=== PATIENT | male | born 1970 | race Caucasian/White ===

== ENCOUNTER 2025-06-19 17:24 | Inpatient (IN) | payer OTHER ==
[~2025-06-19] VITALS: Ht 182.9 cm; Wt 95.7 kg
[2025-06-19 23:18] VITALS: BP_SYST 120; BP_DIAS 64; BP_DIAS 68; PULSE 82; RESP 18; TEMP 97.5; O2SAT 94
[2025-06-20] VITALS (8 sets, daily range): BP systolic 104–130; BP diastolic 66–79; PULSE 56–86; RESP 16–18; TEMP 97.4–97.8; O2SAT 92–98
[2025-06-20] MEDS ORDERED: TAMS0.4C39 PO (00:18)
[2025-06-20] MEDS ORDERED: ROSU40TA47 PO (00:18)
[2025-06-20] MEDS ORDERED: ONDANSETRON HCL 4 MG/2 ML VIAL IV PRN (00:45)
[2025-06-20] MEDS ORDERED: MORPHINE SULFATE INJ 2 MG/ml SYRG IV PRN (00:45)
--- NOTE | 2025-06-20 01:06 | DVHHPRES ---
History of Present Illness Resident Creating Document: MAXIMILIANO WEEMS RESIDENT History of Present Illness Ryan Banerjee, is a 55 yo male with a past medical history of hyperlipidemia, BPH, hypogonadism and relevant surgical history of appendectomy, cholecystectomy and left inguinal repair. The patient is a transfer from the [facility] ([facility]) where he consulted with history of 1 day of sudden start of abdominal pain 10/10, cramp-like, localized in the left lower quadrant, associated with nausea, vomit #1, cold sweats and dizziness. The patient reported no passing gases and not having a bowel movement in the last 2 days. At the [facility] the labs showed WBC 15.4 x10e3, absolute neutrophils 13.91, CT scan showed: findings concerning for small bowel obstruction with transition point in the right mid abdomen, there is free fluid om the peritoneal cavity and diffusely dilatated loops of small bowel. No free intraperitoneal air. Appendix no visualized, with surgical clips adjacent to the cecum. Significant prostatomegaly. The patient was transported to [facility] for further evaluation and management. The patient denies history of prior abdominal obstructions, fever, nausea, vomit, diarrhea or other symptoms. 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 Father: Lung cancer), Hypertension Smoke: Quit (Cigarretes for 10 years, quit 30 years ago. ) ALCOHOL: occassional Drugs: None Lives: with Family Review of Systems Constitutional: No: Fever, Chills, Sweats, Weakness, Malaise, Other Eyes: No: Pain, Vision change, Conjunctivae inflammation, Eyelid inflammation, Other, Redness ENT: No: Ear pain, Ear discharge, Nose pain, Nose discharge, Nose congestion, Mouth pain, Mouth swelling, Throat pain, Throat swelling, Other Respiratory: No: Cough, Dry, Shortness of breath, SOB with excertion, Wheezing, Hemoptysis, Pleuritic Pain, Sputum, Wheezing, Other Cardiovascular: No: Chest Pain, Palpitations, Orthopnea, Paroxysmal Noc. Dyspnea, Edema, Lt Headedness, Other Gastrointestinal: Nausea, Vomiting, Abdominal Pain, Other (Dizizness) Genitourinary: No Dysuria, No Frequency, No Incontinence, No Hematuria, No Retention, No Other Musculoskeletal: No: other, neck pain, shoulder pain, arm pain, back pain, hand pain, leg pain, foot pain Skin: No: Rash, Lesions, Jaundice, Bruising, Other Neurological: No: Weakness, Numbness, Incoordination, Change in speech, Confusion, Seizures, Other Allergies: Coded Allergies: NO KNOWN ALLERGIES (Unverified , 06/19/25) Medications Current Medications Medications Dose Ordered Sig/Steve Route Start Time Stop Time Status Last Admin Dose Admin Morphine Sulfate 2 mg Q4HPRN PRN IV 06/20/25 00:45 UNV Ceftriaxone Sodium 50 ml @ 100 mls/hr DAILY@09 IV 06/20/25 09:00 UNV Metronidazole 100 ml @ 100 mls/hr Q8HR IV 06/20/25 06:00 UNV Pantoprazole Sodium 40 mg DAILY IV 06/20/25 10:00 UNV Ondansetron HCl 4 mg Q4HPRN PRN IV 06/20/25 00:45 UNV Exam Vital Signs Vital Signs Date Time Temp Pulse Resp B/P (MAP) Pulse Ox O2 Delivery O2 Flow Rate FiO2 06/19/25 23:18 97.5 82 18 120/68 (85) 94 97.5 General Appearance: Alert, Oriented X3, Cooperative, mild distress HEENT: Atraumatic, PERRLA, Mucous membr. moist/pink Respiratory: Clear to auscultation, Normal air movement Cardiovascular: Regular rate, Normal S1, Normal S2, No murmurs Abdominal: No masses, Other (Flat, no abdominal distention, hypoactive bowel sounds, tender to deep palpation over epigastic area and Left lower quadrant. No rebound, no rigidity. ) Extremities: No clubbing, No cyanosis, No edema, Normal pulses, No tenderness/swelling Skin: No rashes, No breakdown, No significant lesion Neuro: Normal gait, Normal speech, Strength at 5/5 X4 ext, Normal tone, Sensation intact, Cranial nerves 3-12 NL Psych/Mental Status: Mental status NL, Mood NL SEPSIS Sepsis Screen Recent Procedure: No On Antibiotic Therapy: Yes Respiratory Rate >20: No Heart Rate >90: No Temp<36 C (96.8 F) or >38.3 C: No SBP <90 or MAP <65 mmHG: No New Acute Mental Status Change: No Is the patient on CPAP, BIPAP,: No IV fluid challenge completed?: No Physician Orders * Dietary Consult (06/20/25 00:16) Admit (06/20/25 00:39) Code Status (06/20/25 00:39) Review Orders With Adm.Md (06/20/25 00:39) Bedrest With Bathroom Privileg (06/20/25 00:39) Notify Md Of Changes From Base (06/20/25 00:39) Advance Directive (06/20/25 00:39) Basic Metabolic Panel (06/20/25 00:39) Urinalysis (06/20/25 00:39) Complete Blood Count (06/20/25 00:39) Patient Condition (06/20/25 00:39) Allergies (06/20/25 00:39) Drug Screen (06/20/25 00:39) Morphine Sulfate Injection (06/20/25 00:45) Ceftriaxone 1gm/50ml D5w (Rocephin) (06/20/25 09:00) Metronidazole 500mg/100ml (Flagyl 500mg/ (06/20/25 06:00) Pantoprazole (Protonix) (06/20/25 10:00) NS (06/20/25 00:45) Ondansetron Hcl (Zofran) (06/20/25 00:45) * Surgical Consult (06/20/25 ) Vital Signs Date Time Temp Pulse Resp B/P (MAP) Pulse Ox O2 Delivery O2 Flow Rate FiO2 06/19/25 23:18 97.5 82 18 120/68 (85) 94 97.5 Assessment/Plan Assessment/Plan #Acute abdominal pain due to small bowel obstruction. #Leukocytosis NPO Nasogastric tube. Surgical consult IV fluids Morphine 2 mg IV Zofran 4mg IV PRN Ceftriaxone IV Flagyl IV Abdominal CT scan: Findings concerning for small bowel obstruction with transition point the right middle abdomen. #Hyperlipidemia Atorvastatin 40 mg (on hold for NPO) #Hypogonadism Testosterone injection (Home medication) #Benign prostatic hyperplasia Tamsulosin 0.4 mg (on hold for NPO) Diet: NPO until further notice DVT prophylaxis- Patient deambulates PUD prophylaxis Protonic Goals of care discussed with the patient > 35 min. Discussed plan of care with Dr. Schumacher Code status: Full code PCP: Julio Riggs ([facility]) Plan discussed with: Patient, the patient agrees with the plan. Plan discussed with: Patient My Orders Orders - MAXIMILIANO WEEMS RESIDENT Procedure Category Date Status Time Admit ADMIT 06/20/25 Transmitted 00:39 Code Status CODE 06/20/25 Transmitted 00:39 Review Orders With [facility] 06/20/25 Transmitted Adm. 00:39 Bedrest With Bathroom [facility] 06/20/25 Transmitted Privileg 00:39 Notify Md Of Changes [facility] 06/20/25 Transmitted From Base 00:39 Advance Directive [facility] 06/20/25 Transmitted 00:39 Basic Metabolic Panel LAB 06/20/25 Transmitted 00:39 Urinalysis LAB 06/20/25 Transmitted 00:39 Complete Blood Count LAB 06/20/25 Transmitted 00:39 Patient Condition ORDERS 06/20/25 Transmitted 00:39 Allergies [facility] 06/20/25 Transmitted 00:39 Drug Screen LAB 06/20/25 Transmitted 00:39 Morphine Sulfate PHA 06/20/25 Logged Injection 00:45 Ceftriaxone 1gm/50ml PHA 06/20/25 Logged D5w (Rocephin) 09:00 Metronidazole PHA 06/20/25 Logged 500mg/100ml (Flagyl 06:00 Pantoprazole PHA 06/20/25 Transmitted (Protonix) 10:00 NS PHA 06/20/25 Transmitted 00:45 Ondansetron Hcl PHA 06/20/25 Transmitted (Zofran) 00:45 * Surgical Consult CONS 06/20/25 Transmitted Common Visit Codes: [id number] INP/OBS CARE (HIGH) Secondary Visit Codes: [id number] CARE PLAN 30 MINUTES MAXIMILIANO WEEMS RESIDENT Jun 20, 2025 01:06
[2025-06-20] MEDS: SODIUM CHLORIDE 0.9% 1,000 ML IV ONE (01:48)
[2025-06-20 05:23] LABS: Anion Gap 9 (5-15); Carbon Dioxide 26 mmol/L (20-31); Potassium 4.0 mmol/L (3.5-5.1); Sodium 143 mmol/L (136-145)
[2025-06-20 05:24] LABS: Calcium 8.8 mg/dL (8.7-10.4)
[2025-06-20 05:29] LABS: BUN/Creatinine Ratio 8.9 (10.0-20.0); Blood Urea Nitrogen 11 mg/dL (9-23); Glucose 81 mg/dL (74-106)
[2025-06-20 05:30] LABS: Lipase 45 U/L (12-53)
[2025-06-20 05:34] LABS: Chloride 108 mmol/L (98-107)
[2025-06-20 05:44] LABS: Hematocrit 52.1 % (41.0-53.0); Hemoglobin 17.9 g/dL (13.5-17.5); Mean Corpuscular Hemoglobin 28.8 pg (28.0-32.0); Mean Corpuscular Volume 83.9 fL (80.0-100.0); Nucleated Red Blood Cells % 0.3 %
[2025-06-20 06:03] LABS: Urine Protein, UAD TRACE (Negative)
[2025-06-20 06:22] LABS: Opiate Scree,Urine Neg (NEGATIVE)
[2025-06-20 06:37] LABS: Amphetamine Screen, Urine Neg (NEGATIVE); Barbiturate Scree,Urine Neg (NEGATIVE); Benzodiazephine Screen, Urine Neg (NEGATIVE); Cannabinoid Screen, Urine Neg (NEGATIVE); Cocaine Screen, Urine Neg (NEGATIVE); Phencyclidine Screen, Urine Neg (NEGATIVE)
[2025-06-20] MEDS: cefTRIAXone 1GM/50ML D5W 50 ML IV SCH (09:19)
[2025-06-20] MEDS: PANTOPRAZOLE 40 MG/10 ML VIAL INJ IV SCH (10:00)
--- NOTE | 2025-06-20 15:01 | DVHINCON2 ---
Date of service: Jun 20, 2025 Family History: Diabetes mellitus Grandpa FH: breast cancer G8 MOTHER, , Cause: Endometrial cancer FH: colon cancer Grandma FH: lung cancer Grandma FH: pancreatic cancer G8 FATHER, , Cause: Pancreas cancer FHx: cancer G8 MOTHER, , Cause: Endometrial cancer Hypertension Grandpa Allergies: Coded Allergies: NO KNOWN ALLERGIES (Unverified , 06/19/25) Home Meds Reported Medications Rosuvastatin Calcium (Rosuvastatin Calcium) 40 Mg Tab, 40 MG PO DAILY, TAB 06/20/25 Tamsulosin Hcl (Tamsulosin Hcl) 0.4 Mg Cap, 1 CAP PO BID, #30 CAP 5 Refills 06/20/25 Current Medications Current Medications Medications (Trade) Dose Ordered Sig/Steve Route PRN Reason Start Time Stop Time Status Last Admin Morphine Sulfate 2 mg Q4HPRN PRN IV SEVERE PAIN (7-10 PAIN SCALE) 06/20/25 00:45 Ceftriaxone Sodium 50 ml @ 100 mls/hr DAILY@09 IV 06/20/25 09:00 06/20/25 09:19 Metronidazole 100 ml @ 100 mls/hr Q8HR IV 06/20/25 06:00 06/20/25 13:42 Pantoprazole Sodium (Protonix) 40 mg DAILY IV 06/20/25 10:00 06/20/25 10:00 Ondansetron HCl (Zofran) 4 mg Q4HPRN PRN IV NAUSEA / VOMITING 06/20/25 00:45 Vital Signs Vital Signs Date Time Temp Pulse Resp B/P (MAP) Pulse Ox O2 Delivery O2 Flow Rate FiO2 06/20/25 13:00 97.7 86 17 105/66 (79) 98 97.7 06/20/25 08:30 Room Air* 0 21 Labs/Diagnostic Data Labs Test 06/20/25 05:00 06/20/25 04:43 Range/Units Urine Color Yellow Yellow Urine Clarity Clear Clear Urine pH 6.5 5.0-9.0 Urine Specific [place] 1.038 H 1.001-1.035 Urine Protein Trace H Negative Urine Ketones 2+ H Negative Urine Blood Negative Negative /uL Urine Nitrite Negative Negative Urine Bilirubin Negative Negative Urine Urobilinogen Normal Negative mg/dL Urine Leukocyte Esterase Negative Negative /uL Urine RBC 34 0 - 3 /hpf Urine Microscopic WBC 5 H 0-3 /HPF Urine Squamous Epithelial Cells None seen <5 /hpf Urine Bacteria None seen None Seen /hpf Urine Mucus Few None Seen Urine Glucose Normal Normal mg/dL Urine Opiates Screen Neg NEGATIVE Urine Fentanyl Screen Neg NEGATIVE Urine Barbiturates Screen Neg NEGATIVE Urine Phencyclidine Screen Neg NEGATIVE Urine Amphetamines Screen Neg NEGATIVE Urine Benzodiazepines Screen Neg NEGATIVE Urine Cocaine Screen Neg NEGATIVE Urine Cannabinoids Screen Neg NEGATIVE White Blood Count 8.0 4.4-10.8 10^3/uL Red Blood Count 6.21 H 4.5-5.90 10^6/uL Hemoglobin 17.9 H 13.5-17.5 g/dL Hematocrit 52.1 41.0-53.0 % Mean Corpuscular Volume 83.9 80.0-100.0 fL Mean Corpuscular Hemoglobin 28.8 28.0-32.0 pg Mean Corpuscular Hemoglobin Concent 34.3 32.0-36.0 g/dL Red Cell Distribution Width 14.6 H 11.8-14.3 % Platelet Count 188 140-450 10^3/uL Mean Platelet Volume 9.3 6.9-10.8 fL Neutrophils (%) (Auto) 76.2 37.0-80.0 % Lymphocytes (%) (Auto) 11.2 10.0-50.0 % Monocytes (%) (Auto) 9.5 0.0-12.0 % Eosinophils (%) (Auto) 2.9 0.0-7.0 % Basophils (%) (Auto) 0.2 0.0-2.0 % Neutrophils # (Auto) 6.1 1.6-8.6 10 ^3/uL Lymphocytes # (Auto) 0.9 0.4-5.4 10 ^3/uL Monocytes # (Auto) 0.8 0-1.3 10 ^3/uL Eosinophils # (Auto) 0.2 0-0.8 10 ^3/uL Basophils # (Auto) 0 0-0.2 10 ^3/uL Nucleated Red Blood Cells 0.3 % Sodium Level 143 136-145 mmol/L Potassium Level 4.0 3.5-5.1 mmol/L Chloride Level 108 H 98-107 mmol/L Carbon Dioxide Level 26 20-31 mmol/L Anion Gap 9 5-15 Blood Urea Nitrogen 11 9-23 mg/dL Creatinine 1.24 0.700-1.30 mg/dL Glomerular Filtration Rate Calc 69 >90 mL/min BUN/Creatinine Ratio 8.9 L 10.0-20.0 Serum Glucose 81 74-106 mg/dL Calcium Level 8.8 8.7-10.4 mg/dL Lipase 45 12-53 U/L Assessment [id number] AFEBRILE VSS NO N/V ABD SOFT NON TENDER BM + FLATUS+ RESOLVING SBO MANAGE CONSERVATIVELY ALLOW CLEAR LIQUIDS Plan discussed with: Patient KATYA LUGO MD Jun 20, 2025 15:01
--- NOTE | 2025-06-20 17:11 | DVHPN2 ---
Subjective I am assuming the care of the patient from today on pressors. Currently denies any nausea vomiting abdominal pain. Started on clear liquid diet. Changes from previous H/P or p: No Changes Eyes: No Pain, No Vision change, No Conjunctivae inflammation, No Eyelid inflammation, No Other, No Redness ENT: No Ear pain, No Ear discharge, No Nose pain, No Nose discharge, No Nose congestion, No Mouth pain, No Mouth swelling, No Throat pain, No Throat swelling, No Other Cardiovascular: No Chest Pain, No Palpitations, No Orthopnea, No Paroxysmal Noc. Dyspnea, No Edema, No Lt Headedness, No Other Respiratory: No Cough, No Dry, No Shortness of breath, No SOB with excertion, No Wheezing, No Hemoptysis, No Pleuritic Pain, No Sputum, No Other Gastrointestinal: Nausea, Vomiting, Abdominal Pain, Other (Dizizness) Genitourinary: No Dysuria, No Frequency, No Incontinence, No Hematuria, No Retention, No Other Musculoskeletal: No other, No neck pain, No shoulder pain, No arm pain, No back pain, No hand pain, No leg pain, No foot pain Skin: No Rash, No Lesions, No Jaundice, No Bruising, No Other Objective Vitals Vital Signs Date Time Temp Pulse Resp B/P (MAP) Pulse Ox O2 Delivery O2 Flow Rate FiO2 06/20/25 13:00 97.7 86 17 105/66 (79) 98 97.7 06/20/25 08:30 Room Air* 0 21 Intake/Output Intake and Output 06/20/25 07:00 Intake Total 500 ml Balance 500 ml Intake Oral 0 ml IV Total 500 ml Exam HEENT pupils are reactive Neck is supple neck to see if this S1-S2 regular rate and rhythm Discrete bile duct clear GI positive bowel sounds soft nondistended nontender no guarding no rigidity Extremities no pedal edema AGRONOMIST no motor deficit Medications Current Medications Medications Dose Ordered Sig/Steve Route Start Time Stop Time Status Last Admin Dose Admin Morphine Sulfate 2 mg Q4HPRN PRN IV 06/20/25 00:45 Ceftriaxone Sodium 50 ml @ 100 mls/hr DAILY@09 IV 06/20/25 09:00 06/20/25 09:19 100 MLS/HR Metronidazole 100 ml @ 100 mls/hr Q8HR IV 06/20/25 06:00 06/20/25 13:42 100 MLS/HR Pantoprazole Sodium 40 mg DAILY IV 06/20/25 10:00 06/20/25 10:00 40 MG Ondansetron HCl 4 mg Q4HPRN PRN IV 06/20/25 00:45 Laboratory Results Laboratory Tests 06/20/25 04:43 Chemistry Test 06/20/25 04:43 Calcium Level 8.8 mg/dL (8.7-10.4) Lipid panel Test 06/20/25 04:43 Lipase 45 U/L (12-53) Urinalysis Test 06/20/25 05:00 Urine Color Yellow (Yellow) Urine Clarity Clear (Clear) Urine pH 6.5 (5.0-9.0) Urine Specific [place] 1.038 (1.001-1.035) Urine Protein Trace (Negative) H Urine Ketones 2+ (Negative) H Urine Blood Negative /uL (Negative) Urine Nitrite Negative (Negative) Urine Bilirubin Negative (Negative) Urine Urobilinogen Normal mg/dL (Negative) Urine Leukocyte Esterase Negative /uL (Negative) Urine RBC 34 /hpf (0 - 3) Urine Microscopic WBC 5 /HPF (0-3) H Urine Squamous Epithelial Cells None seen /hpf (<5) Urine Bacteria None seen /hpf (None Seen) Urine Mucus Few (None Seen) Urine Glucose Normal mg/dL (Normal) Assessment/Plan Assessment/Plan 55-year-old male with no significant past medical history presented to the hospital with abdominal pain nausea vomiting while in the [facility] sent here for likely small-bowel obstruction. 1. Small bowel obstruction clinically resolved nicotine 2. Abdominal painNausea vomiting discontinued Clear liquid diet as tolerated, follow up generalized surgery. Plan discussed with: Patient Date of Service: Jun 20, 2025 Billing Provider: TUNDE GONZALEZ MD Common Visit Codes: [id number] INP/OBS CARE(MOD) TUNDE GONZALEZ MD Jun 20, 2025 17:11
--- NOTE | 2025-06-20 21:19 | DVHINCON2 ---
DATE OF CONSULTATION: 06/20/2025 HISTORY OF PRESENT ILLNESS: This patient is 55 years old, coming in with abdominal pain, some nausea and vomiting. Yesterday, he had no bowel activity, but today he did and he feels much better. No hematemesis or melena. No bleeding per rectum. PAST MEDICAL HISTORY: No hypertension or diabetes. PAST SURGICAL HISTORY: Gallbladder surgery, appendectomy, left inguinal hernia repair, and some orthopedic surgery. PHYSICAL EXAMINATION: VITAL SIGNS: Afebrile, stable signs. HEENT: No evidence of pallor, cyanosis, or jaundice. NECK: Supple, nontender with no thyromegaly or lymphadenopathy.. CHEST AND LUNGS: Clear. HEART: Within normal limits. ABDOMEN: Soft, nontender. No acute abdomen. NEUROLOGIC: Not assessed. EXTREMITIES: Unremarkable. CLINICAL IMPRESSION: Resolving ileus, small bowel obstruction. At this point, does not have clinical or radiological indication for evidence for small bowel obstruction. PLAN: The plan would be to manage him conservatively, allow him a clear liquid diet and indication for surgery will be based upon ongoing evaluation. MD GIANNA Rivera/SUMMER/JOAN TID: [id number] RECEIPT: [id number] cc: Jeison Huffman NP,
[2025-06-20] MEDS: TAMSULOSIN HYDROCHLORIDE 0.4 MG CAP PO SCH (22:16)
[2025-06-21] VITALS (8 sets, daily range): BP systolic 113–130; BP diastolic 77–84; PULSE 63–87; RESP 16–18; TEMP 97.6–98; O2SAT 96–98
--- NOTE | 2025-06-21 12:01 | DVHPN2 ---
Progress Note Date Seen: Jun 21, 2025 Medical Necessity Reason Pt with a Central, PICC or Fol: No Objective vital signs Vital Sign Date Time Temp Pulse Resp B/P (MAP) Pulse Ox O2 Delivery O2 Flow Rate FiO2 06/21/25 09:00 97.9 72 17 113/78 (90) 97 97.9 06/21/25 08:02 Room Air* 0 21 Total Intake and Output 06/20/25 06/20/25 06/21/25 15:00 23:00 07:00 Intake Total 150 ml 0 ml 1000 ml Balance 150 ml 0 ml 1000 ml medications Current Medications Medications Dose Ordered Sig/Steve Route Start Time Stop Time Status Last Admin Dose Admin Morphine Sulfate 2 mg Q4HPRN PRN IV 06/20/25 00:45 Ceftriaxone Sodium 50 ml @ 100 mls/hr DAILY@09 IV 06/20/25 09:00 06/21/25 08:59 100 MLS/HR Metronidazole 100 ml @ 100 mls/hr Q8HR IV 06/20/25 06:00 06/21/25 05:46 100 MLS/HR Pantoprazole Sodium 40 mg DAILY IV 06/20/25 10:00 06/21/25 10:03 40 MG Ondansetron HCl 4 mg Q4HPRN PRN IV 06/20/25 00:45 Tamsulosin HCl 0.4 mg QPM PO 06/20/25 18:00 06/20/25 22:16 0.4 MG laboratory and microbiology Laboratory Tests 06/20/25 04:43 Test 06/20/25 04:43 Range/Units Serum Glucose 81 74-106 mg/dL Problem List/Assessment/Plan Problem List/Assessment/Plan AFEBRILE VSS ABD SOFT BM + SBO RESOLVED ADVANCE DIET VANNA AND CLEARED FOR DISCHARGE NURSE AT BEDSIDE Plan discussed with: Patient My Orders My Orders Orders - KATYA LUGO MD Procedure Category Date Status Time Full Liq Diet DIET 06/21/25 Transmitted Lunch Dietary Evaluation Review Comments: 1) Advance diet as medically feasible 2) Monitor NPO status, lab values, I/O Expected Outcomes/Goals: To meet >75% estimated needs Fu 2-3 days KATYA LUGO MD Jun 21, 2025 12:01
--- NOTE | 2025-06-21 16:44 | DVHDS2 ---
Discharge Summary Date of Admission Jun 19, 2025 at 23:00 Date of Discharge: Jun 21, 2025 Labs/Diagnostic Data: Laboratory Results Test 06/20/25 05:00 06/20/25 04:43 Urine Color Yellow (Yellow) Urine Clarity Clear (Clear) Urine pH 6.5 (5.0-9.0) Urine Specific [place] 1.038 (1.001-1.035) Urine Protein Trace (Negative) Urine Ketones 2+ (Negative) Urine Blood Negative /uL (Negative) Urine Nitrite Negative (Negative) Urine Bilirubin Negative (Negative) Urine Urobilinogen Normal mg/dL (Negative) Urine Leukocyte Esterase Negative /uL (Negative) Urine RBC 34 /hpf (0 - 3) Urine Microscopic WBC 5 /HPF (0-3) Urine Squamous Epithelial Cells None seen /hpf (<5) Urine Bacteria None seen /hpf (None Seen) Urine Mucus Few (None Seen) Urine Glucose Normal mg/dL (Normal) Urine Opiates Screen Neg (NEGATIVE) Urine Fentanyl Screen Neg (NEGATIVE) Urine Barbiturates Screen Neg (NEGATIVE) Urine Phencyclidine Screen Neg (NEGATIVE) Urine Amphetamines Screen Neg (NEGATIVE) Urine Benzodiazepines Screen Neg (NEGATIVE) Urine Cocaine Screen Neg (NEGATIVE) Urine Cannabinoids Screen Neg (NEGATIVE) White Blood Count 8.0 10^3/uL (4.4-10.8) Red Blood Count 6.21 10^6/uL (4.5-5.90) Hemoglobin 17.9 g/dL (13.5-17.5) Hematocrit 52.1 % (41.0-53.0) Mean Corpuscular Volume 83.9 fL (80.0-100.0) Mean Corpuscular Hemoglobin 28.8 pg (28.0-32.0) Mean Corpuscular Hemoglobin Concent 34.3 g/dL (32.0-36.0) Red Cell Distribution Width 14.6 % (11.8-14.3) Platelet Count 188 10^3/uL (140-450) Mean Platelet Volume 9.3 fL (6.9-10.8) Neutrophils (%) (Auto) 76.2 % (37.0-80.0) Lymphocytes (%) (Auto) 11.2 % (10.0-50.0) Monocytes (%) (Auto) 9.5 % (0.0-12.0) Eosinophils (%) (Auto) 2.9 % (0.0-7.0) Basophils (%) (Auto) 0.2 % (0.0-2.0) Neutrophils # (Auto) 6.1 10 ^3/uL (1.6-8.6) Lymphocytes # (Auto) 0.9 10 ^3/uL (0.4-5.4) Monocytes # (Auto) 0.8 10 ^3/uL (0-1.3) Eosinophils # (Auto) 0.2 10 ^3/uL (0-0.8) Basophils # (Auto) 0 10 ^3/uL (0-0.2) Nucleated Red Blood Cells 0.3 % Sodium Level 143 mmol/L (136-145) Potassium Level 4.0 mmol/L (3.5-5.1) Chloride Level 108 mmol/L (98-107) Carbon Dioxide Level 26 mmol/L (20-31) Anion Gap 9 (5-15) Blood Urea Nitrogen 11 mg/dL (9-23) Creatinine 1.24 mg/dL (0.700-1.30) Glomerular Filtration Rate Calc 69 mL/min (>90) BUN/Creatinine Ratio 8.9 (10.0-20.0) Serum Glucose 81 mg/dL (74-106) Calcium Level 8.8 mg/dL (8.7-10.4) Lipase 45 U/L (12-53) Other Laboratory Tests 06/20/25 04:43 Brief Hx & Hospital Course: 55-year-old male with a known history of BPH, dyslipidemia who was seen in the [facility] IV pain nausea vomiting found to have small-bowel obstruction. Patient was eventually transferred to [facility]. Patient was seen by General surgery clinically patient's verbal obstruction has been resolved. Patient was started on clear liquid diet and advanced to soft food. Patient tolerating diet and currently being discharged in a stable condition. Condition at Discharge: Stable Final Diagnosis/Problems List 1. Small bowel obstruction resolved 2. Abdominal pain nausea vomiting resolved 3. Dyslipidemia 4. BPH Discharge Disposition: Home Discharge Instruct/Medications Diet: Cardiac 2g Na,low cholest Activity: No Restrictions, As Tolerated Follow Up/Referral: Follow up with the PCP in 1-2 weeks Medications: Resume home medications. Scheduled Rosuvastatin Calcium (Rosuvastatin Calcium), 40 MG PO DAILY, (Reported) Tamsulosin Hcl (Tamsulosin Hcl), 1 CAP PO BID, (Reported) Discharge Statement: "Patient was advised to return to the ER or call 911 if any headaches, dizziness, shortness of breath, chest pain, abdominal pain, bleeding, fevers, or worsening of medical condition. Patient was counseled about treatment plan, medications, possible side effects, patientverbalized understanding. All questions were answered to the best of my ability. This discharge took greater then 30 minutes in planning, reviewing documentation, counseling the patient, and discussing with other team members." ASSESSMENT ASSESSMENT Assessment 1. Small bowel obstruction resolved 2. Abdominal pain nausea vomiting resolved 3. Dyslipidemia 4. BPH TUNDE GONZALEZ MD Jun 21, 2025 16:44
== END 2025-06-21 20:24 | disposition home or self-care (01) | DRG 390 ==
LOC: TELE-WESTW 23:00
PROVIDERS: ADMIT Internal Medicine; ATTEND Internal Medicine
DX: K56.609 Unspecified intestinal obstruction, unspecified as to partial versus complete obstruction (principal); N40.0 Benign prostatic hyperplasia without lower urinary tract symptoms; D72.829 Elevated white blood cell count, unspecified; E78.5 Hyperlipidemia, unspecified; Z80.0 Family history of malignant neoplasm of digestive organs; Z80.1 Family history of malignant neoplasm of trachea, bronchus and lung; Z80.3 Family history of malignant neoplasm of breast; Z82.49 Family history of ischemic heart disease and other diseases of the circulatory system; Z83.3 Family history of diabetes mellitus; Z79.899 Other long term (current) drug therapy; Z90.49 Acquired absence of other specified parts of digestive tract
CPT/HCPCS: 36415; 80048; 80307; 81001; 83690; 85025; G0378; J2470; J3490